=== PATIENT | female | born 1950 | race Caucasian/White ===

== ENCOUNTER 2018-09-03 10:48 | Outpatient (CLI) | payer MEDICARE ==
--- NOTE | 2018-09-03 11:57 | RAD ---
TWO VIEWS RIGHT WRIST: INDICATION: Wrist pain with fall. FINDINGS: There is no fracture or dislocation. Mild degenerative change is present. IMPRESSION: No acute fracture of right wrist. POS: [facility]
== END 2018-09-03 10:49 | disposition home or self-care (01) ==
LOC: BICRAD 10:48
PROVIDERS: ATTEND Family Medicine
DX: M25.531 Pain in right wrist (principal)

== ENCOUNTER 2019-01-05 11:33 | Outpatient (CLI) | payer MEDICARE | END 2019-01-05 11:34 | disposition home or self-care (01) | LOC: BICMAMMO 11:33 | PROVIDERS: ATTEND Family Medicine | DX: Z12.31 Encounter for screening mammogram for malignant neoplasm of breast (principal) | CPT/HCPCS: 77063; 77067 ==

== ENCOUNTER 2019-10-25 05:53 | Day surgery (SDC) | payer MEDICARE ==
[2019-10-24 12:53] VITALS: BMI 27.3
[2019-10-25] MEDS ORDERED: Cyclopentolate 1% Opth Drop 2 ML BOT ONE (06:11)
[2019-10-25] MEDS ORDERED: Phenylephrine 2.5% Ophth Soln 5 ML BOT ONE (06:11)
[2019-10-25] MEDS ORDERED: EPINEPHrine 0.3 MG in Ophthalmic Irrigation Solution 500 ML IVP SCH (06:15)
[2019-10-25] MEDS ORDERED: PROPOFOL 100 ML ONE (06:20)
[2019-10-25] MEDS ORDERED: Fentanyl 100 MCG/2 ML VIAL ONE (06:20)
[2019-10-25] MEDS ORDERED: Midazolam HCl 2 mg/2 ml Vial ONE (06:47)
--- NOTE | 2019-10-25 09:30 | OP ---
DATE OF PROCEDURE: 10/25/2019 PRINCIPAL PREOPERATIVE DIAGNOSIS: Vitreous opacities, left eye. POSTOPERATIVE DIAGNOSIS: Vitreous opacities, left eye. NAME OF PROCEDURE PERFORMED: 25-gauge pars plana vitrectomy, left eye. ESTIMATED BLOOD LOSS: None. SPECIMENS REMOVED: None. COMPLICATIONS: None. ANESTHESIA: MAC with retrobulbar block. SUMMARY OF OPERATION: The patient was identified in the preoperative holding area, where the correct eye being the left eye was marked for surgery. The patient was taken to the operating room, where MAC anesthesia was induced. A retrobulbar block was administered to the left eye. The block consisted of 1:1 ratio of 4% lidocaine and 0.75% Marcaine. A total of 5 mL was administered. The left eye was then prepped and draped in the usual sterile ophthalmic fashion for surgery. A wire-clip lid speculum was placed. A standard 25-gauge pars plana vitrectomy platform was fashioned with trocars placed approximately 4 mm from the limbus. The infusion was noted to be within the vitreous cavity prior to being turned on to an infusion pressure of 30 mmHg. The light pipe and microvitrector were introduced in the eye under visualization of the BIOM viewing system. A dense sheet of vitreous opacity was noted predominantly within the inferior vitreous cavity. A careful core and peripheral shave vitrectomy were performed to relieve the vitreous opacities from the eye. Additionally, Kenalog was used to stain any remaining vitreous. A preoperative posterior vitreous detachment was already noted. A 360-degree exam of the periphery revealed no defects. The cannulas were sequentially removed and all sclerotomies were noted to be watertight. Subconjunctival Ancef and Kenalog were injected. The wire-clip lid speculum was removed followed by application of TobraDex ophthalmic ointment and a light patch and shield. The patient tolerated the procedure well and was taken to outpatient recovery area in good condition. Job ID: [id number]
[2019-10-25] MEDS ORDERED: Bupivacaine PF 0.75% SDV 10 ML ONE (10:30)
[2019-10-25] MEDS ORDERED: Lidocaine 1% PF 5 ML VIAL ONE (10:30)
[2019-10-25] MEDS ORDERED: CEFAZOLIN 1 GM VIAL ONE (10:30)
[2019-10-25] MEDS ORDERED: Lidocaine 4% PF 5 ML AMP ONE (10:30)
[2019-10-25] MEDS ORDERED: Triamcinolone 40 MG/ML VIAL ONE (10:30)
[2019-10-25] MEDS ORDERED: Maxitrol 0.1% Opth Oint 3.5 GM TUBE ONE (10:30)
== END 2019-10-25 08:53 | disposition home or self-care (01) ==
LOC: SDC 05:53
PROVIDERS: ATTEND Ophthalmology Retina Specialist
PROC: 08T53ZZ Resection of Left Vitreous, Percutaneous Approach (ICD-10-PCS; principal; 2019-10-25)
DX: H43.392 Other vitreous opacities, left eye (principal); H43.812 Vitreous degeneration, left eye; I10 Essential (primary) hypertension; E78.5 Hyperlipidemia, unspecified; E03.9 Hypothyroidism, unspecified; Z87.891 Personal history of nicotine dependence; Z79.82 Long term (current) use of aspirin; Z79.899 Other long term (current) drug therapy
CPT/HCPCS: J0171; J0690; J2001; J2250; J2704; J3010; J3301; J3490

== ENCOUNTER 2020-05-02 10:28 | Outpatient (CLI) | payer MEDICARE ==
--- NOTE | 2020-05-02 13:48 | MRI ---
MRI RIGHT KNEE: DATE: 05/02/2020. PROVIDED CLINICAL HISTORY: Right knee pain. FINDINGS: The anterior cruciate ligament, posterior cruciate ligament, medial collateral ligament, and lateral collateral ligamentous complex demonstrate an intact MR appearance, as does the extensor mechanism. There is a partial thickness radial tear involving the body-posterior horn junction of the medial men iscus. The lateral meniscus demonstrates no evidence for tear. No focal articular cartilage defect is apparent. The amount of fluid within the knee joint appears physiologic. No focal concerning regional marrow or muscular signal abnormality apparent. IMPRESSION: Medial meniscal tear as above. POS: [facility]
== END 2020-05-02 10:29 | disposition home or self-care (01) ==
LOC: BICMRI 10:28
PROVIDERS: ATTEND Orthopaedic Surgery
DX: M23.91 Unspecified internal derangement of right knee (principal); S83.241A Other tear of medial meniscus, current injury, right knee, initial encounter

== ENCOUNTER 2020-07-06 06:56 | Day surgery (SDC) | payer MEDICARE ==
[2020-07-03 12:44] VITALS: BMI 29.0
[2020-07-06] MEDS ORDERED: Fentanyl 100 MCG/2 ML VIAL ONE ×2 (08:00→09:46)
[2020-07-06] MEDS ORDERED: Midazolam HCl 2 mg/2 ml Vial ONE (08:00)
[2020-07-06] MEDS ORDERED: PROPOFOL 20 ML ONE (08:01)
[2020-07-06] MEDS ORDERED: Lidocaine 1% PF 5 ML VIAL ONE (10:11)
[2020-07-06] MEDS ORDERED: Dexamethasone 20 MG/5 ML VIAL ONE (10:11)
[2020-07-06] MEDS ORDERED: Lidocaine 2% w/Epinephrine 1:200K 20 ML VIAL ONE (10:11)
[2020-07-06] MEDS ORDERED: PROPOFOL 200 MG/20 ML VIAL ONE (10:11)
[2020-07-06] MEDS ORDERED: Bupivacaine HCl 0.5%/Epinephrine 1:200,000/PF 30 ml Vial ONE (10:11)
[2020-07-06] MEDS ORDERED: Ondansetron PF 4 MG/2 ML Vial ONE (10:11)
--- NOTE | 2020-07-06 12:15 | OP ---
DATE OF PROCEDURE: 07/06/2020 PREOPERATIVE DIAGNOSIS: Medial meniscus tear, right knee. POSTOPERATIVE DIAGNOSIS: Medial meniscus tear, right knee. PROCEDURE PERFORMED: Arthroscopic partial medial meniscectomy. ANESTHESIA: General. ESTIMATED BLOOD LOSS: Minimal. SPECIMENS: None. DRAINS: None. COMPLICATIONS: None. 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 DESCRIPTION OF PROCEDURE: The scope was placed in the lateral portal and probe was placed in a medial portal. I performed partial medial meniscectomy using basket forceps anteriorly and posteriorly and debrided this using a 4.0 full-radius resector. I switched back and forth between the shaver and baskets until I had removed all the torn meniscus and there was a stable rim left behind. I probed the rim, confirmed it was stable. Knee was then irrigated and sterile dressing was applied. Job ID: [id number]
== END 2020-07-06 12:35 | disposition home or self-care (01) ==
LOC: SDC 06:56
PROVIDERS: ATTEND Orthopaedic Surgery
PROC: 0SBC4ZZ Excision of Right Knee Joint, Percutaneous Endoscopic Approach (ICD-10-PCS; principal; 2020-07-06)
DX: S83.231A Complex tear of medial meniscus, current injury, right knee, initial encounter (principal); M22.41 Chondromalacia patellae, right knee; E03.9 Hypothyroidism, unspecified; E78.5 Hyperlipidemia, unspecified; I12.9 Hypertensive chronic kidney disease with stage 1 through stage 4 chronic kidney disease, or unspecified chronic kidney disease; N18.9 Chronic kidney disease, unspecified; M85.80 Other specified disorders of bone density and structure, unspecified site; Z79.82 Long term (current) use of aspirin; Z79.899 Other long term (current) drug therapy
CPT/HCPCS: J0670; J0690; J1100; J2250; J2405; J2704; J3010

== ENCOUNTER 2020-08-21 07:28 | Outpatient (CLI) | payer MEDICARE ==
--- NOTE | 2020-08-21 08:30 | MRI ---
MRI BRAIN WITHOUT CONTRAST: HISTORY: Dizziness, diplopia, headaches FINDINGS: No restricted diffusion is seen. There are multiple foci of T2 prolongation in the periventricular wh ite matter, consistent with chronic small vessel ischemic disease. The ventricular size is appropriate and the basilar cisterns are patent. No evidence of acute infarct, hemorrhage, midline shift or abnormal extra-axial fluid collections is seen. There is mucosal disease in the paranasal sinuses. IMPRESSION: No evidence of acute intracranial process.
== END 2020-08-21 07:29 | disposition home or self-care (01) ==
LOC: BICMRI 07:28
PROVIDERS: ATTEND Family Medicine
DX: H53.2 Diplopia (principal); R42 Dizziness and giddiness
CPT/HCPCS: 70551

== ENCOUNTER 2021-01-23 08:53 | Outpatient (CLI) | payer MEDICARE | END 2021-01-23 08:54 | disposition home or self-care (01) | LOC: BICMAMMO 08:53 | PROVIDERS: ATTEND Family Medicine | DX: Z12.31 Encounter for screening mammogram for malignant neoplasm of breast (principal); Z91.89 Other specified personal risk factors, not elsewhere classified | CPT/HCPCS: 77063; 77067 ==

== ENCOUNTER 2022-06-10 09:21 | Outpatient (CLI) | payer MEDICARE | END 2022-06-10 09:22 | disposition home or self-care (01) | LOC: BICMAMMO 09:21 | PROVIDERS: ATTEND Family Medicine | DX: Z12.31 Encounter for screening mammogram for malignant neoplasm of breast (principal); Z91.89 Other specified personal risk factors, not elsewhere classified | CPT/HCPCS: 77063; 77067 ==

== ENCOUNTER 2023-02-02 18:00 | Outpatient (CLI) | payer MEDICARE | END 2023-02-02 18:01 | disposition home or self-care (01) | LOC: SLEEPLAB 18:00 | PROVIDERS: ATTEND Family Medicine | DX: G47.33 Obstructive sleep apnea (adult) (pediatric) (principal) | CPT/HCPCS: 95800 ==

== ENCOUNTER 2023-06-25 10:50 | Outpatient (CLI) | payer MEDICARE | END 2023-06-25 10:51 | disposition home or self-care (01) | LOC: BICMAMMO 10:50 | PROVIDERS: ATTEND Family Medicine | DX: Z12.31 Encounter for screening mammogram for malignant neoplasm of breast (principal); N63.10 Unspecified lump in the right breast, unspecified quadrant; Z91.89 Other specified personal risk factors, not elsewhere classified | CPT/HCPCS: 77063; 77067 ==

== ENCOUNTER 2023-06-30 08:22 | Outpatient (CLI) | payer MEDICARE | END 2023-06-30 08:23 | disposition home or self-care (01) | LOC: BICMAMMO 08:22 | PROVIDERS: ATTEND Family Medicine | DX: N64.89 Other specified disorders of breast (principal) | CPT/HCPCS: 77065; G0279 ==

== ENCOUNTER 2024-08-04 08:28 | Outpatient (CLI) | payer MEDICARE | END 2024-08-04 08:29 | disposition home or self-care (01) | LOC: BICMAMMO 08:28 | PROVIDERS: ATTEND Family Medicine | DX: Z12.31 Encounter for screening mammogram for malignant neoplasm of breast (principal); Z91.89 Other specified personal risk factors, not elsewhere classified | CPT/HCPCS: 77063; 77067 ==

== ENCOUNTER 2024-08-23 10:19 | Outpatient (CLI) | payer MEDICARE | END 2024-08-23 10:20 | disposition home or self-care (01) | LOC: BICRAD 10:19 | PROVIDERS: ATTEND Family Medicine | DX: M25.562 Pain in left knee (principal) ==

== ENCOUNTER 2024-09-04 11:35 | Emergency (ER) | payer MEDICARE ==
[2024-09-04] MEDS ORDERED: traMADol HCl 50 MG TAB ONE (13:09)
[2024-09-04] MEDS ORDERED: Lidocaine 4% Patch ONE (13:14)
== END 2024-09-04 15:05 | disposition home or self-care (01) ==
LOC: ERS 11:35
DX: M25.562 Pain in left knee (principal); I10 Essential (primary) hypertension

== ENCOUNTER 2024-09-28 09:07 | Outpatient (CLI) | payer MEDICARE | END 2024-09-28 09:08 | disposition home or self-care (01) | LOC: SCSMRI 09:07 | PROVIDERS: ATTEND Student in an Organized Health Care Education/Training Program | DX: M23.92 Unspecified internal derangement of left knee (principal); S83.232A Complex tear of medial meniscus, current injury, left knee, initial encounter; M25.462 Effusion, left knee; S72.432A Displaced fracture of medial condyle of left femur, initial encounter for closed fracture; M65.98 Unspecified synovitis and tenosynovitis, other site ==

== ENCOUNTER 2025-06-26 08:08 | Observation (INO) | payer MEDICARE ==
[2025-06-19 11:15] LABS: #Basophils 0.09 10x3/uL (0.0-0.2); #Eosinophils 0.16 10x3/uL (0.0-0.7); #Monocytes 1.06 10x3/uL (0.11-0.59); #Neutrophils 8.02 10x3/uL (1.40-6.50); %Basophils 0.8 % (0.0-1.0); %Eosinophils 1.3 % (0.0-10.0); %Lymphocytes 20.7 % (21.0-51.0); %Monocytes 8.9 % (0.0-10.0); %Neutrophils 67.0 % (42.0-75.0); Hematocrit 33.7 % (36.0-47.0); Hemoglobin 11.0 g/dL (12.0-16.0); Mean Corpuscular Hemoglobin 27.2 pg (27.0-31.0); Mean Corpuscular Volume 83.2 fL (78.0-98.0); Platelet Count 254 10x3/uL (130-400); Red Blood Cell (RBC) Count 4.05 mill/uL (4.20-5.40); White Blood Cell (WBC) Count 11.96 10x3/uL (4.8-10.8)
[2025-06-19 12:05] LABS: INR-International Normal Ratio 1.1; Prothrombin Time 13.9 sec (12.0-14.7)
[2025-06-19 12:45] LABS: ALT (SGPT) 21 U/L (Less than 34); AST (SGOT) 22 U/L (11-34); Albumin 3.6 g/dL (3.1-4.5); Alkaline Phosphatase 95 U/L (40-110); Anion Gap 14 mmol/L (10-20); BUN (Urea Nitrogen) 12 mg/dL (9.8-20.1); Bilirubin, Total 0.3 mg/dL (0.3-1.2); Calc. Creatinine Clearance 0 mL/min (70-130); Calcium 8.7 mg/dL (7.8-10.44); Carbon Dioxide 28 mmol/L (23-31); Chloride 96 mmol/L (98-107); Globulin 3.2 g/dL (2.4-3.5); Glucose 111 mg/dL (83-110); Potassium 3.6 mmol/L (3.5-5.1); Sodium 134 mmol/L (136-145)
[2025-06-26] MEDS ORDERED: Tranexamic Acid 1,000 MG/10 ML VIAL ONE (08:19)
[2025-06-26] MEDS ORDERED: Acetaminophen 500 MG TAB ONE (08:20)
[2025-06-26] MEDS ORDERED: Vancomycin 1 GM/200 ML (FROZEN) BAG ONE (08:20)
[2025-06-26] MEDS ORDERED: Lidocaine 1% PF 5 ML VIAL ONE (08:41)
[2025-06-26] MEDS ORDERED: PROPOFOL 20 ML ONE (08:41)
[2025-06-26] MEDS ORDERED: Bupivacaine 0.25% HCL 30 ML VIAL ONE (08:44)
[2025-06-26] MEDS ORDERED: CEFAZOLIN 2 GM VIAL ONE (08:48)
[2025-06-26] MEDS ORDERED: oxyCODONE 5 MG TAB PO PRN ×2 (09:08)
[2025-06-26] MEDS ORDERED: Ropivacaine 0.2% 550 ML 550 ML NERVE BLCK SCH (09:15)
[2025-06-26] MEDS ORDERED: PHENYLEPHRINE-NS 100 MCG/ML 10 ML SYRINGE ONE (09:23)
[2025-06-26] MEDS ORDERED: Ondansetron PF 4 MG/2 ML Vial ONE (11:20)
[2025-06-26] MEDS ORDERED: Ondansetron PF 4 MG/2 ML Vial IVP PRN (11:41)
[2025-06-26] MEDS ORDERED: diphenhydrAMINE 25 MG CAP PO PRN (11:41)
[2025-06-26] MEDS ORDERED: Acetaminophen 325 MG TAB PO SCH (12:00)
[2025-06-26] MEDS ORDERED: HYDROmorphone 0.5 MG/0.5 ML SYRINGE ONE (12:17)
[2025-06-26] MEDS ORDERED: hydrALAZINE 20 MG/ML VIAL ONE (14:41)
[2025-06-26] MEDS: Acetaminophen 500 MG TAB PO SCH ×2 (16:09→22:05)
[2025-06-26] MEDS: Ondansetron PF 4 MG/2 ML Vial IVP PRN (16:42)
[2025-06-26 16:58] VITALS: BMI 30.9
[2025-06-26] MEDS: Senokot S 8.6-50 MG TAB PO SCH (20:36)
[2025-06-26] MEDS: Ferrous Gluconate 324 MG TAB PO SCH (20:36)
[2025-06-26] MEDS: Gabapentin 300 MG CAP PO SCH (20:38)
[2025-06-27 05:54] LABS: Hematocrit 32.7 % (36.0-47.0); Hemoglobin 10.3 g/dL (12.0-16.0); Mean Corpuscular Hemoglobin 27.0 pg (27.0-31.0); Mean Corpuscular Volume 85.8 fL (78.0-98.0); Platelet Count 240 10x3/uL (130-400); Red Blood Cell (RBC) Count 3.81 mill/uL (4.20-5.40); White Blood Cell (WBC) Count 16.34 10x3/uL (4.8-10.8)
[2025-06-27 06:19] LABS: Anion Gap 14 mmol/L (10-20); BUN (Urea Nitrogen) 14 mg/dL (9.8-20.1); Calc. Creatinine Clearance 58 mL/min (70-130); Calcium 8.4 mg/dL (7.8-10.44); Carbon Dioxide 24 mmol/L (23-31); Chloride 101 mmol/L (98-107); Glucose 96 mg/dL (83-110); Potassium 4.1 mmol/L (3.5-5.1); Sodium 135 mmol/L (136-145)
[2025-06-27] MEDS: Multivitamin W/ Minerals 1 TAB PO SCH (09:09)
[2025-06-27] MEDS: Aspirin 81 mg Enteric Coated Tablet PO SCH (09:10)
[2025-06-28 06:30] LABS: Hematocrit 28.1 % (36.0-47.0); Hemoglobin 9.0 g/dL (12.0-16.0); Mean Corpuscular Hemoglobin 27.3 pg (27.0-31.0); Mean Corpuscular Volume 85.2 fL (78.0-98.0); Platelet Count 199 10x3/uL (130-400); Red Blood Cell (RBC) Count 3.30 mill/uL (4.20-5.40); White Blood Cell (WBC) Count 15.80 10x3/uL (4.8-10.8)
[2025-06-28 07:53] VITALS: BP 148/61; TEMP 98
== END 2025-06-28 11:30 | disposition home or self-care (01) ==
LOC: SDC 08:08 → SURG A 15:31
PROVIDERS: ADMIT Student in an Organized Health Care Education/Training Program; ATTEND Student in an Organized Health Care Education/Training Program
PROC: 0SRD0J9 Replacement of Left Knee Joint with Synthetic Substitute, Cemented, Open Approach (ICD-10-PCS; principal; 2025-06-26)
DX: M17.12 Unilateral primary osteoarthritis, left knee (principal); E03.9 Hypothyroidism, unspecified; I10 Essential (primary) hypertension; E78.5 Hyperlipidemia, unspecified; Z79.890 Hormone replacement therapy; Z79.899 Other long term (current) drug therapy; Z79.82 Long term (current) use of aspirin
CPT/HCPCS: 0055T; 27447; 64447; 36415; 80048; 80053; 85025; 85027; 85610; 86850; 86900; 86901; 87081; A4306; C1713; C1776; C1889; J0166; J0360; J0665; J1171; J2250; J2405; J2704; J2795; J3010; J3373